=== PATIENT | female | born 1990 | race Two or more races ===

== ENCOUNTER 2019-12-09 08:26 | Emergency (ER) | payer OTHER ==
[~2019-12-09] VITALS: Ht 165.1 cm; Wt 68.2 kg
[2019-12-09] MEDS ORDERED: NS 1,000 ML IV ONE (08:45)
[2019-12-09] MEDS ORDERED: KETOROLAC 30 MG/ML 1ML VIAL IV ONE (09:00)
[2019-12-09 09:09] LABS: BASO % 0.5 % (0.0-1.0); EOS # 0.1 10^3/uL (0.0-0.5); EOS % 0.9 % (0.0-3.0); HEMATOCRIT 41.8 % (36.0-47.0); HEMOGLOBIN 13.7 g/dl (12.0-15.5); LYMPH # 1.8 10^3/uL (1.5-5.0); LYMPH % 21.4 % (24.0-44.0); MEAN CORPUSCULAR HEMOGLOBIN 28.8 pg (27.0-33.0); MEAN CORPUSCULAR HGB CONC 32.8 g/dl (32.0-36.5); MEAN CORPUSCULAR VOLUME 87.8 fl (80.0-96.0); MONO # 0.4 10^3/uL (0.0-0.8); NEUTROPHILS # 5.9 10^3/uL (1.5-8.5); NEUTROPHILS % 71.7 % (36.0-66.0); PLATELET COUNT, AUTOMATED 265 10^3/uL (150-450); RED BLOOD COUNT 4.76 10^6/uL (4.00-5.40); WHITE BLOOD COUNT 8.2 10^3/uL (4.0-10.0)
[2019-12-09 09:37] LABS: ALBUMIN 3.5 GM/DL (3.2-5.2); ALT/SGPT 27 U/L (12-78); BILIRUBIN,DIRECT 0.2 MG/DL (0.0-0.2); BILIRUBIN,TOTAL 0.6 MG/DL (0.2-1.0); BLOOD UREA NITROGEN 14 MG/DL (7-18); CALCIUM LEVEL 8.7 MG/DL (8.5-10.1); CARBON DIOXIDE LEVEL 26 MEQ/L (21-32); CHLORIDE LEVEL 109 MEQ/L (98-107); CREATININE FOR GFR 0.81 MG/DL (0.55-1.30); GLOMERULAR FILTRATION RATE > 60.0 (>60); GLUCOSE, FASTING 87 MG/DL (70-100); POTASSIUM SERUM 4.1 MEQ/L (3.5-5.1); SODIUM LEVEL 141 MEQ/L (136-145); TOTAL PROTEIN 7.8 GM/DL (6.4-8.2)
--- NOTE | 2019-12-09 10:17 | REP ---
CHEST: Single view. There is no evidence of acute infiltrate. No pleural effusion is seen. The heart is normal in size. The mediastinal silhouette is unremarkable. The visualized osseous structures are intact. IMPRESSION: No acute pulmonary disease. Electronically Signed by Tom Agee MD 12/09/2019 11:58 A
[2019-12-09 11:30] VITALS: BP 146/75
--- NOTE | 2019-12-09 12:28 | REP ---
PELVIS AND BILATERAL HIPS: AP view of the pelvis and AP and frogleg views of bilateral hips performed. There is no evidence of acute fracture, dislocation, or intrinsic bone disease. IMPRESSION: No acute fracture or dislocation. Electronically Signed by Tom Agee MD 12/09/2019 12:30 P
--- NOTE | 2019-12-09 12:30 | REP ---
CERVICAL SPINE, AP AND LATERAL: AP and lateral views of cervical spine performed. No definite fracture or dislocation is seen. There is normal alignment and cervical lordosis. There is no prevertebral soft tissue swelling. Disc spaces are well preserved. In order to completely exclude cervical spine fracture, I would recommend CT of the cervical spine. Electronically Signed by Tom Agee MD 12/09/2019 03:07 P
--- NOTE | 2019-12-09 14:08 | REP ---
REASON: Pain in the neck after trauma. There are no priors for comparison. Vertebral body height and alignment is within normal limits. The disc spaces are symmetric and well maintained. The facet joints are well aligned bilaterally. There is no evidence of an acute fracture. There is no abnormal paraspinal soft tissue swelling. IMPRESSION: CT findings are within normal limits. Electronically Signed by Pillo Romero DO 12/09/2019 02:58 P
== END 2019-12-09 11:43 | disposition home or self-care (01) ==
LOC: M ED 08:26 → EDBD 08:26 → M ED 11:43
DX: M25.551 Pain in right hip (principal); M25.552 Pain in left hip; M54.2 Cervicalgia; V47.5XXA Car driver injured in collision with fixed or stationary object in traffic accident, initial encounter
CPT/HCPCS: 71045; 72040; 72125; 73521; 80048; 80076; 85025; 93041; 94760; 96361; 96374; 99285; J1885